=== PATIENT | male | born 1965 | race Caucasian/White ===

== ENCOUNTER 2016-12-17 23:50 | Emergency (ER) | payer SELFPAY | END 2016-12-18 02:06 | disposition home or self-care (01) | LOC: D.ER 23:50 | DX: S61.411A Laceration without foreign body of right hand, initial encounter (principal); W45.8XXA Other foreign body or object entering through skin, initial encounter; Y92.009 Unspecified place in unspecified non-institutional (private) residence as the place of occurrence of the external cause ==